=== PATIENT | female | born 1955 | race Asian ===

== ENCOUNTER 2019-05-15 23:46 | Emergency (ER) | payer SELFPAY ==
[~2019-05-15] VITALS: Ht 157.5 cm; Wt 56.8 kg
[2019-05-16 02:40] LABS: BASOPHILS % (AUTO) 0.4 % (0.0-2.0); EOSINOPHILS % (AUTO) 1.9 % (1.0-6.0); HEMATOCRIT 44.8 % (36-46); HEMOGLOBIN 15.3 g/dL (12.0-16.0); LYMPHOCYTES # (AUTO) 1.7 K/uL (1.0-4.8); LYMPHOCYTES % (AUTO) 23.5 % (22.0-44.0); MEAN CORPUSCULAR HEMOGLOBIN 30.8 pg (26.0-34.0); MEAN CORPUSCULAR HGB CONC 34.1 G/dL (31.0-37.0); MEAN CORPUSCULAR VOLUME 90 fL (80-100); MONOCYTES # (AUTO) 0.5 K/uL (0.1-1.0); MONOCYTES % (AUTO) 7.3 % (2.0-9.0); NEUTROPHILS # (AUTO) 4.9 K/uL (1.8-7.7); NEUTROPHILS % (AUTO) 66.9 % (40.0-70.0); PLATELET COUNT (AUTO) 308 K/uL (150-450); RED BLOOD CELL COUNT(AUTO) 4.96 MIL/uL (4.00-5.20); RED CELL DISTRIBUTION WIDTH 12.5 % (11.5-14.5)
[2019-05-16 03:23] LABS: MAGNESIUM 2.4 mg/dL (1.80-2.40)
[2019-05-16 04:30] VITALS: BP 111/71
[2019-05-16 04:55] LABS: CALCIUM, TOTAL 9.5 mg/dL (8.8-10.5); POTASSIUM 3.2 mmol/L (3.5-5.1)
[2019-05-16] MEDS ORDERED: LORazepam 2 MG/ML VIAL IVP ONE (05:00)
[2019-05-16 05:01] LABS: ALBUMIN 4.4 g/dL (3.4-5.0); BILIRUBIN,TOTAL 1.4 mg/dL (0.1-1.0)
[2019-05-16] MEDS ORDERED: SODIUM CHLORIDE 0.9% 100 ML ONE (05:04)
[2019-05-16] MEDS ORDERED: IOVERSOL 350 MG/ML 100 ML VIAL ONE (05:04)
== END 2019-05-16 07:00 | disposition home or self-care (01) ==
LOC: EMS 23:48
DX: I27.21 Secondary pulmonary arterial hypertension (principal); I50.9 Heart failure, unspecified; R07.89 Other chest pain
CPT/HCPCS: 36415; 71045; 71275; 80053; 82550; 83735; 83880; 84484; 85025; 85379; 93005; 96374; 99284; J2060; J7050; Q9967

== ENCOUNTER 2020-01-18 01:21 | Emergency (ER) | payer MEDICAID, OTHER ==
[~2020-01-18] VITALS: Ht 160 cm; Wt 61.4 kg
[2020-01-18] MEDS ORDERED: LIDOCAINE 1% 10 ML VIAL INJ ONE (02:00)
[2020-01-18 02:24] VITALS: BP 136/86
== END 2020-01-18 02:25 | disposition home or self-care (01) ==
LOC: EMS 01:21
DX: L02.415 Cutaneous abscess of right lower limb (principal)
CPT/HCPCS: 10060; 99282; J3490